=== PATIENT | male | born 1940 | race Hispanic/Latino ===

== ENCOUNTER 2020-08-31 08:45 | Inpatient (IN) | payer OTHER ==
--- NOTE | 2020-08-25 09:34 | RAD REPORT ---
EXAM DESCRIPTION: Yazmin Pena (2 Views)08/25/2020 9:28 am CLINICAL HISTORY: Preop for knee surgery COMPARISON: None FINDINGS: The lungs appear clear of acute infiltrate. The heart is normal size IMPRESSION: No acute abnormalities displayed
[2020-08-25 09:42] LABS: Absolute Lymphocytes (CBC) 2.2 K/uL (0.7-4.9); Basophils % 0.6 % (0-1.3); Hematocrit 45.2 % (39.6-49.0); Lymphocytes % 31.4 % (15.3-44.8); MPV 8.5 fL (7.6-11.3); RBC Red Blood Cell Count 4.88 M/uL (4.33-5.43)
[2020-08-25 09:46] LABS: Protime INR 1.01
[2020-08-25 10:19] LABS: Potassium 4.7 mmol/L (3.5-5.1)
[~2020-08-31 08:45] MED LIST: TRANEXAMIC ACID 1,000 MG in NA CHLORIDE 0.9% 50 ML IV SCH
[2020-08-31] MEDS ORDERED: CEFAZOLIN/SWI 1gm 2 GM/20 ML SYR ONE (09:26)
[2020-08-31] MEDS ORDERED: FENTANYL CITR 100 MCG/2 ML ONE (09:31)
[2020-08-31] MEDS ORDERED: MIDAZOLAM HCL 2 MG/2 ML INJ ONE (09:31)
[2020-08-31] MEDS ORDERED: dexAMETHasone 10 MG/ML VIAL ONE (10:47)
[2020-08-31] MEDS ORDERED: propofoL 200 MG/20 ML VIAL IV ONE (11:24)
[2020-08-31] MEDS ORDERED: LIDOCAINE 2% MPF 5 ML VIAL ONE (11:24)
[2020-08-31] MEDS ORDERED: HYDROMORPHONE HCL 1 MG/ML INJ ONE (11:28)
[2020-08-31] MEDS: BUPIVACA 0.5%/EPI 0.0005%/PF 30 ML VIAL ONE ×2 (11:51→12:50)
[2020-08-31] MEDS: NA CHLORIDE 0.9% 1,000 ML ONE ×4 (12:21→12:54)
[2020-08-31] MEDS ORDERED: NA CHLORIDE 0.9% 1,000 ML ONE (12:34)
[2020-08-31] MEDS ORDERED: KETOROLAC 30 MG/ML INJ ONE ×2 (12:52→13:16)
[2020-08-31] MEDS ORDERED: TRAMADOL HCL 50 MG TAB PO PRN (13:36)
--- NOTE | 2020-08-31 13:36 | P.BOP ---
Preoperative diagnosis: right knee osteoarthritis Postoperative diagnosis: same Primary procedure: right total knee arthroplasty Secondary procedure: none Botany Teacher: NONE,NONE Estimated blood loss: 20 cc Specimen: right knee bone remnants Findings: see dictation Anesthesia: General Complications: None Implants: Biomet Viridiana Persona 10 CR STD femur, G tibia, 32 mm patella, 10 CR poly Fluids & blood products: per anesthesia record; TT: 73 mins @ 300 mmHg Transferred to: Recovery Room Condition: Good
[2020-08-31] MEDS ORDERED: ONDANSETRON 4 MG/2 ML VIAL IV PRN (13:37)
[2020-08-31] MEDS ORDERED: DOCUSATE NA 100 MG CAP PO PRN (13:37)
[2020-08-31] MEDS ORDERED: MORPHINE 2 MG/ML SYR IV PRN (13:37)
[2020-08-31] MEDS ORDERED: HYDROCODONE/APAP 7.5/325 MG TAB PO PRN (13:37)
[2020-08-31 14:25] LABS: Hematocrit 41.3 % (39.6-49.0)
--- NOTE | 2020-08-31 14:29 | RAD REPORT ---
EXAM DESCRIPTION: RAD - Knee Right 2 View - 08/31/2020 2:16 pm CLINICAL HISTORY: Postop right knee, total prosthesis placement COMPARISON: None. FINDINGS: A right total knee arthroplasty has been performed. Hardware is in expected location. Skin pravin are noted. IMPRESSION: Postoperative right knee with no unexpected finding.
[2020-08-31 15:17] VITALS: BMI 28.1
[2020-08-31] MEDS ORDERED: D50W 25 GM/50 ML SYRINGE/VIAL IV PRN (16:45)
[2020-08-31] MEDS ORDERED: GLUCAGON 1 MG/VIAL IM PRN (16:45)
[2020-08-31] MEDS: INSULIN -REGULAR HUMAN 50 UNIT/0.5 ML ML SQ SCH ×2 (16:54→20:46)
[2020-08-31] MEDS: CEFAZOLIN/SWI 2gm 2 GM/20 ML SYR IV SCH (16:57)
[2020-08-31] MEDS: METFORMIN HCL 500 MG TAB PO SCH (16:58)
[2020-08-31] MEDS: GABAPENTIN 100 MG CAP PO SCH ×2 (16:58→20:44)
[2020-08-31] MEDS ORDERED: CEFAZOLIN 2 GM in NA CHLORIDE 0.9% 100 ML IVPB SCH (17:00)
[2020-08-31] MEDS ORDERED: ATORVASTATIN 10 MG TAB PO SCH (21:00)
--- NOTE | 2020-08-31 21:42 | P.CNS ---
Date of Consult: 08/31/20 Reason for Consult: Medical management Requesting Physician: Onur Villanueva Primary Care Provider: Dr. Forde Chief Complaint: Right total knee replacement History of Present Illness: 80-year-old male seen by orthopedics has been having right knee pain for approximately 1 year. Patient was brought in to have right knee replacement and noted to have high blood sugars. Patient history diabetes mellitus type 2 and hypertension for which she takes oral medications. Hospitalist team was consulted for medical management. - Past Medical/Surgical History Diabetic: Yes -: Diabetes mellitus type 2 -: Hypertension -: Hyperlipidemia -: Osteoarthritis -: hernia repair -: surgery on right arm for injury Psychosocial/ Personal History: Patient is retired and lives with his son - Family History Father History Unknown: Yes Mother History Unknown: Yes - Social History Alcohol use: No CD- Drugs: No Caffeine use: Yes Place of Residence: Home <Teo John - Last Filed: 08/31/20 21:37> <Mohit Chin - Last Filed: 09/01/20 10:43> Allergies No Known Allergies Allergy (Unverified 08/25/20 09:11) Home Medications: Aspirin 81 mg PO DAILY 08/25/20 Cyanocobalamin (Vitamin B-12) [Vitamin B-12] 1,000 mcg PO DAILY 08/25/20 Enalapril Maleate 10 mg PO DAILY 08/25/20 Gabapentin [Neurontin] 100 mg PO TID 08/25/20 Linagliptin [Tradjenta] 5 mg PO DAILY 08/25/20 Meloxicam 15 mg PO DAILY AT SUPPER 08/25/20 Metformin HCl 1,000 mg PO BID 08/25/20 Pantoprazole [Protonix Tab] 40 mg PO DAILY 08/25/20 Pravastatin Sodium 40 mg PO DAILY 08/25/20 Tramadol HCl [Ultram] 50 mg PO Q6HP PRN 08/25/20 Review of Systems 10-point ROS is otherwise unremarkable Musculoskeletal: Other (Right knee pain) <Teo John - Last Filed: 08/31/20 21:37> Physical Examination Temp Pulse Resp BP Pulse Ox 97.9 F 80 18 163/75 H 96 08/31/20 15:16 08/31/20 15:16 08/31/20 15:16 08/31/20 15:16 08/31/20 15:16 General: Alert, In no apparent distress HEENT: Atraumatic, PERRLA, Mucous membr. moist/pink, EOMI, Sclerae nonicteric Neck: Supple, 2+ carotid pulse no bruit, No LAD, Without JVD or thyroid abnormality Respiratory: Clear to auscultation bilaterally, Normal air movement Cardiovascular: Regular rate/rhythm, Normal S1 S2 Capillary refill: <2 Seconds Gastrointestinal: Normal bowel sounds, No tenderness Musculoskeletal: Other (Dressing in place to right knee, in CPM machine. Dressing is dry and intact.) Integumentary: No significant lesion, No warmth, No cyanosis Neurological: Normal speech, Normal tone, Normal affect Lymphatics: No axilla or inguinal lymphadenopathy Laboratory Data (last 24 hrs) 08/31/20 14:13: Hgb 14.0, Hct 41.3 <Teo John - Last Filed: 08/31/20 21:37> Temp Pulse Resp BP Pulse Ox 97.6 F 70 19 142/75 H 97 09/01/20 08:00 09/01/20 08:00 09/01/20 08:00 09/01/20 08:00 09/01/20 08:00 Laboratory Data (last 24 hrs) 09/01/20 05:24: Sodium 145, Potassium 3.9, BUN 17, Creatinine 1.13, Glucose 219 H 09/01/20 05:24: WBC 14.3 H D, Hgb 13.8, Hct 41.2, Plt Count 184 08/31/20 14:13: Hgb 14.0, Hct 41.3 <Mohit Chin - Last Filed: 09/01/20 10:43> Conclusions/Impression: Assessment S/P right total knee replacement Diabetes mellitus type 2 Hypertension Hyperlipidemia Plan S/P right total knee replacement: This to be further managed by orthopedics. Plan is likely for home health with physical therapy or rehab. Diabetes mellitus type 2: A.c. HS Accu-Cheks scale insulin therapy, A1c with morning labs. Hypertension: Home medications have been continued, will provide patient with p.r.n. medications. Hyperlipidemia: Home medications have been continued. Critical Care: No Time Spent Managing Pts care (In Minutes): 35 <Teo John - Last Filed: 08/31/20 21:37> Conclusions/Impression: Plan of care discussed with Teo John, and I agree with the management plan as noted above. <Mohit Chin - Last Filed: 09/01/20 10:43>
[2020-09-01] MEDS: CEFAZOLIN/SWI 2gm 2 GM/20 ML SYR IV SCH ×2 (00:57→09:48)
[2020-09-01 05:57] LABS: Absolute Lymphocytes (CBC) 1.1 K/uL (0.7-4.9); Basophils % 0.1 % (0-1.3); Hematocrit 41.2 % (39.6-49.0); Lymphocytes % 7.6 % (15.3-44.8); MPV 8.8 fL (7.6-11.3); RBC Red Blood Cell Count 4.44 M/uL (4.33-5.43)
[2020-09-01] MEDS ORDERED: ENOXAPARIN 30 MG/0.3 ML SQ SCH (06:00)
[2020-09-01 06:36] LABS: Potassium 3.9 mmol/L (3.5-5.1)
[2020-09-01 06:47] LABS: White Blood Cell Scan OK (OK)
[2020-09-01 06:48] LABS: Blood Morphology Comment NOT SEEN (NOT SEEN); Platelet Estimate DECR
[2020-09-01] MEDS ORDERED: BUPIVACAINE 0.25% PF 30 ML VIAL ONE (07:45)
[2020-09-01 08:38] VITALS: TEMP 97.6
[2020-09-01] MEDS ORDERED: CELECOXIB 100 MG CAPSULE PO SCH (09:00)
[2020-09-01] MEDS ORDERED: PANTOPRAZOLE 40MG TABLET PO SCH (09:00)
[2020-09-01] MEDS ORDERED: ENALAPRIL 10 MG TAB PO SCH (09:00)
[2020-09-01] MEDS ORDERED: HOME MED 1 EA UNK (Linagliptin [Tradjenta] 5 MG) PO SCH (09:00)
[2020-09-01] MEDS ORDERED: HOME MED 1 EA UNK (Pravastatin Sodium [Pravastatin Sodium] 40 MG) PO SCH (09:00)
[2020-09-01] MEDS: INSULIN -REGULAR HUMAN 50 UNIT/0.5 ML ML SQ SCH ×3 (10:20→16:30)
[2020-09-01] MEDS: METFORMIN HCL 500 MG TAB PO SCH ×2 (10:21→17:00)
[2020-09-01] MEDS: GABAPENTIN 100 MG CAP PO SCH ×2 (10:21→14:00)
--- NOTE | 2020-09-01 10:44 | P.PN ---
Subjective Date of Service: 09/01/20 Primary Care Provider: Dr. Forde Chief Complaint: Right total knee replacement Subjective: Improving (doing well, reports pain controlled, looking forward to returning home, states will have family to help him denies nausea/chest feliberto n/SOB) Review of Systems 10-point ROS is otherwise unremarkable Physical Examination - Vital Signs Temperature: 97.6 F Blood Pressure: 142/75 Pulse: 70 Respirations: 19 Pulse Ox (%): 97 - Physical Exam General: Alert, In no apparent distress, Oriented x3 HEENT: Mucous membr. moist/pink, Sclerae nonicteric Respiratory: Clear to auscultation bilaterally, Normal air movement Cardiovascular: No edema, Regular rate/rhythm Gastrointestinal: Soft and benign, Non-distended, No tenderness Musculoskeletal: Other (RLE: dressing c/d/i) Neurological: Sensation intact (RLE distally) - Studies Laboratory Data (last 24 hrs) 09/01/20 05:24: Sodium 145, Potassium 3.9, BUN 17, Creatinine 1.13, Glucose 219 H 09/01/20 05:24: WBC 14.3 H D, Hgb 13.8, Hct 41.2, Plt Count 184 08/31/20 14:13: Hgb 14.0, Hct 41.3 Assessment & Plan Physician Review Additional Text: S/P right total knee replacement (08/31) Diabetes mellitus type 2, non-insulin dependent Hypertension Hyperlipidemia Plan S/P right total knee replacement: Plan is likely for home health with physical therapy or rehab. continue postoperative care per ortho Diabetes mellitus type 2: Home medications restarted this morning. A1c:8.3 this morning, up from 7.2 over a year ago discussed with patient continue home medications Hypertension: continue home medications Hyperlipidemia: Continue home medications Time Spent Managing Pts Care (In Minutes): 30
[2020-09-01 12:02] VITALS: O2SAT 97
--- NOTE | 2020-09-01 12:13 | P.PN ---
Subjective Date of Service: 09/01/20 Primary Care Provider: Dr. Forde Chief Complaint: Right total knee replacement Subjective: Ambulating, Working w/ PT pain controlled Physical Examination - Vital Signs Temperature: 97.6 F Blood Pressure: 142/75 Pulse: 70 Respirations: 19 Pulse Ox (%): 97 - Physical Exam General: Alert, In no apparent distress Musculoskeletal: Other (RLE: dressing c/d/i; +EHL/FHL/GSC/TA; sensation grossly intact distally) - Studies Laboratory Data (last 24 hrs) 09/01/20 05:24: Sodium 145, Potassium 3.9, BUN 17, Creatinine 1.13, Glucose 219 H 09/01/20 05:24: WBC 14.3 H D, Hgb 13.8, Hct 41.2, Plt Count 184 08/31/20 14:13: Hgb 14.0, Hct 41.3 Assessment And Plan - Plan Gulshan is an 80 yo male s/p right TKA POD#1 -PT to mobilize; WBAT RLE -lovenox for DVT prophylaxis -plan on d/c tomorrow if stable mobilizing with PT
[2020-09-01 17:05] VITALS: BP 134/76
--- NOTE | 2020-09-03 22:16 | P.OP ---
Preoperative diagnosis: right knee osteoarthritis Postoperative diagnosis: right knee osteoarthritis Primary procedure: right total knee arthroplasty Secondary procedure: none Anesthesia: General Estimated blood loss: 20 cc Specimen: right knee bone remnants Findings: see dictation Operative Technique: Indication For Procedure: Gulshan is an 80 year-old male presenting to my clinic with signs, symptoms and x-ray findings consistent with a severe right knee osteoarthritis. I discussed with the patient at length risks and benefits associated with operative and nonoperative treatment. He had failed conservative treatment measures including corticosteroid and viscosupplementation injections. He expressed understanding and elected to proceed with operative treatment. Description Of Procedure: After informed consent was obtained, the patient was identified in the preoperative holding area. The right lower extremity was marked. The patient was then taken to the PACU where he underwent a right lower extremity adductor canal block performed by Anesthesia. He was then taken to the operating room, transferred to the operating table in supine fashion, and placed under general anesthesia. His right lower extremity was then prepped and draped in usual sterile fashion. A time-out was initiated. The correct patient and procedure were confirmed and identified. The patient did receive his preoperative prophylactic antibiotics. The right lower extremity was then exsanguinated and tourniquet was inflated to 300 mmHg. Approximately 15 cm longitudinal incision was made centered over the anterior aspect of the right knee. Dissection was then taken to the extensor mechanism and a medial parapatellar arthrotomy was performed. The patella was everted and dislocated laterally and the knee was flexed in the fat pad. Medial lateral meniscus and ACL were all excised exposing the distal femur. Excess hypertrophic synovium was also excised within the suprapatellar pouch. The patient had MRIs of his right knee and cutting block was then placed over the distal femur and pins were then placed. The distal femoral cutting block was then placed over the pins. Knee joint was then used to ensure proper depth cut and the distal femur was then cut. The chamfer cutting guide was then placed over the distal end of the femur. Anterior, posterior cuts as well as anterior and posterior chamfer cuts were then made again confirming proper depth of the cut using an Fernando wing. Excess bone remnants were then sent to pathology for further evaluation. Next, attention was taken to the proximal tibia. A tibial jig and tibial cutting block was then placed on proximal aspect of the right tibia and locked into position. Pins were then placed and alignment guide was then used to confirm proper alignment of the cut and then coronal and sagittal planes. Once this was confirmed, the cutting jig was placed over the pins and the proximal tibia was cut. Sizing trays were then selected and size 10 mm spacer was used and there was good overall balance in flexion and extension. Next, the trial implants were then placed using the size 10 standard CR femur and a size G tibia with a 10 mm poly. There was overall good range of motion and good stability Trial implants were then removed. The wound was then irrigated thoroughly with normal saline and the knee was then injected with 30 cc of 0.5% Marcaine with epinephrine both in the posterior capsule and mediallateral gutters as well as quadriceps tendon and periosteum. The tibia was then punched. The femur was drilled. The cement was then prepared on the back table. Cement was then placed first on the tibial surface followed by size G tibia. Excess cement was removed with [place] elevators. Size 10 standard CR femur was then placed on the distal femur after cement was placed on the distal femur. Excess cement was then removed and a size 10 mm trial poly was then placed. The knee was held in extension as the cement hardened. Undersurface of the patella was prepared debriding osteophytes using rongeurs as well as osteophytes had been debrided off the proximal tibia with rongeurs and osteotomes to aid with the medial tightness. Cement was placed on the undersurface of the patella after it was cut and a size 32 patella was placed. Once the cement was hardened, the knee was ranged, there was good overall stability both in flexion, extension and as well as stability with varus and valgus stresses. Trial poly was then removed and a size 10 mm CR poly was then placed and locked into position. The knee was then ranged again. There was good overall range of motion both for flexion and extension with good stability. The wound was then irrigated again thoroughly with normal saline using pulse lavage. Tourniquet was let down. Hemostasis was achieved using Bovie electrocautery. Extensor mechanism was then approximated using a #1 Vicryl bothin interrupted and running fashion. The fascia was then approximated using 0 Vicryl. Subcutaneous tissue was approximated with a 2-0 Vicryl. Skin was approximated using pravin. Sterile dressings were applied. The patient was awakened and transferred back in stable condition. Complications: None Implants: Biomet Viridiana Persona 10 CR femur, G tibia, 32 mm patella, 10 mm CR poly Fluids & blood products: per anesthesia record; 73 mins @ 300 mmHg Transferred to: Recovery Room Condition: Good
== END 2020-09-01 17:48 | disposition home health service (06) | DRG 470 ==
LOC: OR 08:45 → 2ND 14:10
PROVIDERS: ADMIT Orthopaedic Surgery Sports Medicine; ATTEND Orthopaedic Surgery Sports Medicine
PROC: 0SRC0J9 Replacement of Right Knee Joint with Synthetic Substitute, Cemented, Open Approach (ICD-10-PCS; principal; 2020-08-31 10:30)
DX: M17.11 Unilateral primary osteoarthritis, right knee (principal); E78.5 Hyperlipidemia, unspecified; E11.9 Type 2 diabetes mellitus without complications; I10 Essential (primary) hypertension; Z79.84 Long term (current) use of oral hypoglycemic drugs; Z79.82 Long term (current) use of aspirin; Z79.899 Other long term (current) drug therapy; Z20.828 Contact with and (suspected) exposure to other viral communicable diseases
CPT/HCPCS: 36415; 71046; 80048; 82947; 83036; 85014; 85018; 85025; 85610; 85730; 88304; 88305; 88311; 94010; 97110; 97116; 97139; 97161; 97530; J0690; J1100; J1170; J1650; J2250; J2704; J3010; J7030; U0002